=== PATIENT | male | born 1935 | race Hispanic/Latino ===

== ENCOUNTER 2018-10-30 07:56 | Day surgery (SDC) | payer MEDICARE ==
[~2018-10-30] VITALS: Ht 170.2 cm; Wt 92.5 kg
[2018-10-30] MEDS ORDERED: SODIUM CHLORIDE 0.9% 1000ML 1,000 ML IV ONE (08:06)
[2018-10-30 08:46] VITALS: BP 112/65
[2018-10-30] MEDS ORDERED: CARV12.511 PO (08:58)
[2018-10-30] MEDS ORDERED: LISI-617 PO (08:58)
[2018-10-30] MEDS ORDERED: HUMLIS7525 SQ (08:58)
[2018-10-30] MEDS ORDERED: OMEP40CA37 PO (08:58)
[2018-10-30] MEDS ORDERED: ATOR40TA71 PO (08:58)
[2018-10-30] MEDS ORDERED: TRAM50TA4 PO (08:58)
[2018-10-30] MEDS ORDERED: PROPOFOL 10 MG/ML 20ML VIAL IV ONE (09:38)
[2018-10-30 10:09] VITALS: BP 105/64
[2018-10-30 10:10] VITALS: BP 104/61
[2018-10-30 10:14] VITALS: BP 114/69
[2018-10-30 10:19] VITALS: BP 120/70
[2018-10-30 10:20] VITALS: BP 104/61
== END 2018-10-30 10:45 | disposition home or self-care (01) ==
LOC: DAH 07:56 → ENDO 07:56
PROVIDERS: ATTEND Internal Medicine Gastroenterology
DX: D12.3 Benign neoplasm of transverse colon (principal); K44.9 Diaphragmatic hernia without obstruction or gangrene; K29.50 Unspecified chronic gastritis without bleeding; K31.9 Disease of stomach and duodenum, unspecified; K57.30 Diverticulosis of large intestine without perforation or abscess without bleeding; I10 Essential (primary) hypertension; F41.9 Anxiety disorder, unspecified; F32.9 Major depressive disorder, single episode, unspecified; E11.9 Type 2 diabetes mellitus without complications; M19.90 Unspecified osteoarthritis, unspecified site; E78.5 Hyperlipidemia, unspecified; I25.10 Atherosclerotic heart disease of native coronary artery without angina pectoris; Z95.0 Presence of cardiac pacemaker; Z79.84 Long term (current) use of oral hypoglycemic drugs; Z79.899 Other long term (current) drug therapy; Z68.30 Body mass index [BMI] 30.0-30.9, adult
CPT/HCPCS: 43239; 45385; 82948; 88305; 88342; 93005; A4606; J2704; J7030; 45384

== ENCOUNTER → 2019-02-08 | Outpatient (CLI) | payer MEDICARE ==
[~2019-02-08] MED LIST: ATOR40TA71 PO; CARV12.511 PO; HUMLIS7525 SQ; LISI-617 PO; OMEP40CA37 PO; TRAM50TA4 PO
== END | disposition home or self-care (01) ==
LOC: RAH 10:14
PROVIDERS: ATTEND Internal Medicine Gastroenterology
DX: R13.10 Dysphagia, unspecified (principal); R14.0 Abdominal distension (gaseous)
CPT/HCPCS: 78264; A9541